=== PATIENT | male | born 1980 | race Hispanic/Latino ===

== ENCOUNTER 2016-08-31 11:47 | Emergency (ER) | payer OTHER, BC ==
[2016-08-31 12:21] VITALS: BP 133/76; PULSE 79; RESP 16; TEMP 98.4; O2SAT 99
[2016-08-31] MEDS ORDERED: TDAP Vaccine 0.5 mL Syr IM ONE (12:23)
--- NOTE | 2016-08-31 12:27 | ED PDOC ---
Upper Extremity Pain/Injury Time Seen by Provider: 08/31/16 12:25 Chief Complaint (Nursing): Finger,Hand,&Wrist Chief Complaint (Provider): finger injury History Per: Patient (36 y/o male with finger injury that occurred today when he cut self in [facility]. Patient states he was attempting to slice meat at work and injured self. Unsure of tetanus status. Injury occurred 1 hour prior to ED arrival.) Past Medical History Reviewed: Historical Data, Nursing Documentation, Vital Signs Vital Signs: Last Vital Signs Temp 98.4 F 08/31/16 12:18 Pulse 79 08/31/16 12:18 Resp 16 08/31/16 12:18 BP 133/76 08/31/16 12:18 Pulse Ox 99 08/31/16 12:18 - Medical History PMH: Asthma, Pneumonia Denies: Chronic Kidney Disease - Family History Family History: States: No Known Family Hx - Home Medications Home Medications: Ambulatory Orders Medication Instructions Recorded Vancomycin [Vancomycin HCl] 1.25 g IV DAILY #10 vial 03/25/14 Cephalexin [Keflex] 500 mg PO QID #20 capsule 08/31/16 - Allergies Allergies/Adverse Reactions: Allergies Allergy/AdvReac Type Severity Reaction Status Date / Time No Known Allergies Allergy Verified 03/14/14 13:38 Review of Systems ROS Statement: Except As Marked, All Systems Reviewed And Found Negative Physical Exam - Reviewed Nursing Documentation Reviewed: Yes Vital Signs Reviewed: Yes - Physical Exam Appears: Positive for: Well, Non-toxic, No Acute Distress Head Exam: Positive for: ATRAUMATIC, NORMAL INSPECTION, NORMOCEPHALIC Skin: Positive for: Normal Color, Warm, DRY Eye Exam: Positive for: EOMI, Normal appearance, PERRL ENT: Positive for: Normal ENT Inspection Neck: Positive for: Normal, Painless ROM Cardiovascular/Chest: Positive for: Regular Rate, Rhythm Respiratory: Positive for: CNT, Normal Breath Sounds Gastrointestinal/Abdominal: Positive for: Normal Exam, Bowel Sounds, Soft Back: Positive for: Normal Inspection Extremity: Positive for: Normal ROM, Other (1 cm flap avulsion middle digit distal phalanx not involving nail. No active bleeding noted currently.) Neurologic/Psych: Positive for: Alert, Oriented - ECG O2 Sat by Pulse Oximetry: 99 - Progress ED Course And Treament: tdap 0.5 ml IM x 1 dose Keflex 500mg x 1 dose Disposition - Clinical Impression Clinical Impression: Finger laceration - Patient ED Disposition Is Patient to be Admitted: No - Disposition Disposition: Routine/Home Disposition Time: 12:28 Condition: FAIR Prescriptions: Cephalexin [Keflex] 500 mg PO QID #20 capsule Instructions: Skin Adhesive Care (ED), Laceration (DC) Forms: [facility] ED School/Work Excuse Procedure: Wound Repair - Time Performed Time Performed: 12:27 - Time Out Time Out: Site verified - Consent Obtained Consent obtained: Verbal - Performed by Performed by: Mid-level Provider - Indications Indication(s):: Laceration - Location Location:: Left Finger:: Middle Shape:: Curvilinear Depth:: Epidermis - Wound repair method [place]:: Tissue glue
== END 2016-08-31 13:21 | disposition home or self-care (01) ==
LOC: H.ER 11:47
DX: S61.213A Laceration without foreign body of left middle finger without damage to nail, initial encounter (principal); W26.0XXA Contact with knife, initial encounter; Y99.0 Civilian activity done for income or pay